=== PATIENT | female | born 1950 | race Caucasian/White ===

== ENCOUNTER → 2016-11-23 | Outpatient (CLI) | payer OTHER ==
[~2016-11-23] MED LIST: ALBUTEROL17 GM; ALLEGRA; ASMANEX; NASACORT AQ16.5 GM; SINGULAIR
--- NOTE | ~2016-11-23 | MR83 ---
[facility] A Service of [facility] RADIOLOGY TEXT RESULTS PATIENT: KRISTIN HECTOR LOCATION: [facility] : 52 UNIT #: [id number] AGE: [address]: Sang Jane MD SEX: F ORDER DR: [id number] [address] [address] [id number] O MR#: [id number] Acc #: [id number] NAME: KRISTIN HECTOR : 1950 SEX: F STUDY DATE/TIME: 11/23/2016 9:30 UNIT: [facility] ROOM: STUDY DESCRIPTION: MR Hip Wo Contrast Lt Attending Physician: Sang Jane M.D. Referring Physician: Sang Jane M.D. Ordering Physician: Sang Jane M.D. Primary Care Physician: Miller Lazcano M.D. MRI CENTER REPORT This report is preliminary unless electronic signature is present. EXAM MRI pelvis and hips, 11/23/2016 COMPARISON Pelvis, left hip radiographs 09/06/2016. CT pelvis 06/30/2007. HISTORY Left hip pain. History sheet states no specific injury and no prior surgery. Increasing left hip pain for about 6 months extending into the thigh. Hysterectomy. History of rheumatoid arthritis. The hips demonstrate no effusion, fracture, or avascular necrosis. There are no visible arthritic changes of the hips. There is no high-grade chondromalacia or loose body noted. The gluteal tendon insertions at the greater trochanter are unremarkable. There may be very minimal left hamstring origin tendinosis but no evidence of a tear or inflammatory change. The remainder of the bony pelvis, sacrum, and SI joints are unremarkable. Pelvic musculature is unremarkable. There is lumbar curvature and multilevel lumbar degenerative disc disease, not optimally evaluated on this exam. Sigmoid diverticulosis is present. Patient is status post hysterectomy. There is no mass or hernia identified. No lymphadenopathy. There is no muscle atrophy. IMPRESSION 1. The musculoskeletal pelvis and hips are normal except for very minimal tendinosis at the origin of the left hamstrings at the [facility] A Service of [facility] & [facility] RADIOLOGY TEXT RESULTS PATIENT: KRISTIN HECTOR LOCATION: [facility] : 52 UNIT #: [id number] AGE: [address]: Sang Jane MD SEX: F ORDER DR: ischial tuberosity. 2. Lower lumbar degenerative disc disease and curvature. 3. Sigmoid diverticulosis. 4. Hysterectomy. Dictated by... Anh Sharma M.D. THIS IS AN ELECTRONICALLY VERIFIED REPORT Anh Sharma M.D. at 11/26/2016 2:14 PM SANTA/deedee TD: 11/26/2016 11:34 JOB #: [id number] MRI CENTER REPORT Page 1 of 1
== END | disposition home or self-care (01) ==
LOC: SMRI 09:11
DX: M25.552 Pain in left hip (principal); M51.36 Other intervertebral disc degeneration, lumbar region; M43.8X6 Other specified deforming dorsopathies, lumbar region; K57.30 Diverticulosis of large intestine without perforation or abscess without bleeding; Z90.710 Acquired absence of both cervix and uterus
CPT/HCPCS: 73721

== ENCOUNTER → 2016-12-25 | Outpatient (CLI) | payer MEDICARE ==
--- NOTE | ~2016-12-25 | BD1 ---
[facility] A Service of [facility] RADIOLOGY TEXT RESULTS PATIENT: KRISTIN HECTOR LOCATION: [facility] : 51 UNIT #: [id number] AGE: [address]: Fabiola Munoz MD SEX: F ORDER DR: [id number] [facility] [address] [place], [place] [address] [id number] O MR#: [id number] Acc #: [id number] NAME: KRISTIN HECTOR : 1950 SEX: F STUDY DATE/TIME: 12/25/2016 9:36 UNIT: [facility] ROOM: STUDY DESCRIPTION: BD Dexa Bone Dens 1+ Site Attending Physician: Fabiola Munoz M.D. Referring Physician: Fabiola Munoz M.D. Ordering Physician: Fabiola Munoz M.D. Primary Care Physician: Miller Lazcano M.D. MEDICAL IMAGING REPORT This report is preliminary unless electronic signature is present EXAM DEXA bone scan spine and hip HISTORY Osteoporosis. Postmenopausal. Nonsmoker. Blood pressure medicine. TECHNIQUE Bone density scanning performed upper 4 lumbar vertebral segments and proximal left femur in 200 pound, 66-year-old female. COMPARISON STUDIES 12/21/2014. FINDINGS L1-L4: Total bone mineral density 1.066 g/cm2 for T score 0 standard deviation of the mean for a reference population of normal young individuals and Z score 2.0 standard deviations above the mean for an age-matched population. Compared to 12/21/14, there has been a statistically-significant 11.5% increase in bone mineral density in this region. Proximal left femur: Total bone mineral density 0.956 g/cm2 for a T score of 0.1 standard deviation above the mean for a reference population of normal young individuals, and Z score of 1.4 standard deviations above the mean for age-matched population. In the left femoral neck specifically, the bone mineral density is 0.617 g/cm2 for a T score 2.1 standard deviations below mean for a reference population of normal young individuals, and Z score 0.5 standard deviations below mean for age-matched population. Using total bone mineral density as trending value in this region, there [facility]. [facility] A Service of [facility] & [facility] RADIOLOGY TEXT RESULTS PATIENT: KRISTIN HECTOR LOCATION: [facility] : 52 UNIT #: [id number] AGE: [address]: Fabiola Munoz MD SEX: F ORDER DR: has been an 8.6% increase in bone mineral density compared to 12/21/14. IMPRESSION 1. Osteopenia in the left femoral neck. The patient felt to be at increased risk for fracture. Treatment options may be considered. Continued surveillance is recommended. 2. Please see trending data in body of report above. Dictated by... Slick Lipscomb M.D. THIS IS AN ELECTRONICALLY VERIFIED REPORT Slick Lipscomb M.D. at 12/27/2016 8:25 AM Angelito TD: 12/26/2016 14:42 JOB #: [id number] MEDICAL IMAGING REPORT Page 1 of 1 COPY
--- NOTE | ~2016-12-25 | MY11 ---
[facility] A Service of [facility] RADIOLOGY TEXT RESULTS PATIENT: KRISTIN HECTOR LOCATION: [facility] : 52 UNIT #: [id number] AGE: [address]: Fabiola Munoz MD SEX: F ORDER DR: [id number] [facility] [address] [place], [place] [address] [id number] O MR#: [id number] Acc #: [id number] NAME: KRISTIN HECTOR : 1950 SEX: F STUDY DATE/TIME: 12/25/2016 9:55 UNIT: [facility] ROOM: STUDY DESCRIPTION: MY Mammogram Screening Dig Abiodun Attending Physician: Fabiola Munoz M.D. Referring Physician: Fabiola Munoz M.D. Ordering Physician: Fabiola Munoz M.D. Primary Care Physician: Miller Lazcano M.D. MEDICAL IMAGING REPORT This report is preliminary unless electronic signature is present EXAM Digital screening mammogram 12/25/2016 HISTORY 66-year-old woman no risk elevation. Annual screen. COMPARISON Mammograms date to 10/28/2006 with most recent comparison 11/29/2015. FINDINGS Digital imaging of each breast was completed utilizing a two-view examination of each breast in craniocaudal and mediolateral-oblique projections. Review and interpretation of digital mammograms include a second review in conjunction with FDA-approved CAD device. There is a normal parenchymal presentation bilaterally consistent with the patient's age. There are no breast masses imaged and no parenchymal asymmetry is visualized. There are no suspicious microcalcifications and I see no focal architectural disturbance. IMPRESSION Negative screening digital mammogram. One-year followup recommended. ADDENDUM Breast parenchyma is fatty replaced. Patients over the age of 40 are entered into a reminder system with target due date for the next mammogram. A result letter will also be sent to the patient. BIRADS: 1 Negative [facility] A Service of [facility] & [facility] RADIOLOGY TEXT RESULTS PATIENT: KRISTIN HECTOR LOCATION: [facility] : 52 UNIT #: [id number] AGE: [address]: Fabiola Munoz MD SEX: F ORDER DR: Dictated by... Neo Saldivar M.D. THIS IS AN ELECTRONICALLY VERIFIED REPORT Noe Saldivar M.D. at 12/25/2016 2:42 PM MAGDY/lisa TD: 12/25/2016 14:19 JOB #: [id number] MEDICAL IMAGING REPORT Page 1 of 1 COPY
== END | disposition home or self-care (01) ==
LOC: CWCC 09:11
DX: Z13.820 Encounter for screening for osteoporosis (principal); Z12.31 Encounter for screening mammogram for malignant neoplasm of breast; M85.88 Other specified disorders of bone density and structure, other site; R92.8 Other abnormal and inconclusive findings on diagnostic imaging of breast
CPT/HCPCS: 77080; G0202

== ENCOUNTER → 2017-04-11 | Outpatient (CLI) | payer MEDICARE ==
--- NOTE | ~2017-04-11 | MR113 ---
[facility] A Service of [facility] & [facility] RADIOLOGY TEXT RESULTS PATIENT: KRISTIN HECTOR LOCATION: [facility] : 51 UNIT #: [id number] AGE: [address]: Sang Jane MD SEX: F ORDER DR: [id number] [address] [address] [id number] O MR#: [id number] Acc #: [id number] NAME: KRISTIN HECTOR : 1950 SEX: F STUDY DATE/TIME: 04/11/2017 16:07 UNIT: [facility] ROOM: STUDY DESCRIPTION: MR Lumbar Wo Contrast Attending Physician: Sang Jane M.D. Referring Physician: Sang Jane M.D. Ordering Physician: Sang Jane M.D. Primary Care Physician: Miller Lazcano M.D. MRI CENTER REPORT This report is preliminary unless electronic signature is present. EXAM Lumbar MRI HISTORY Low back pain radiating to the left. Symptoms over the past 4 months. TECHNIQUE Multiplanar imaging of the lumbar spine was performed with short and long TR. FINDINGS Coronal series demonstrates mid lumbar levoscoliosis with a An angle of 18.4 degrees. Degenerative changes are seen at all lumbar discs. At L1-L2, there is disc space narrowing with mild broad-based posterior disc bulging and osteophyte. There is mild bilateral facet hypertrophy with mild central stenosis. At L2-3, there is disc space narrowing with a degenerative grade 1 retrolisthesis. There is moderate bilateral facet hypertrophy. Central stenosis at this level is moderate. Foraminal stenosis is mild bilaterally. At L3-4, the disc is degenerated with broad-based mild disc bulging. Facet hypertrophy is moderate on the left and severe on the right and central stenosis is moderate. The foramina are mildly narrowed bilaterally, worse on the right side. At L4-5, the disc is narrowed with concentric disc bulging. This is more prominent to the left than to the right within the foramina. There is moderate bilateral facet hypertrophy. Central stenosis is mild. Foraminal stenosis is mild bilaterally and greater on the left than on the right. [facility] A Service of [facility] & [facility] RADIOLOGY TEXT RESULTS PATIENT: KRISTIN HECTOR LOCATION: [facility] : 51 UNIT #: [id number] AGE: [address]: Sang Jane MD SEX: F ORDER DR: At L5-S1, the disc is degenerated with disc space narrowing. There is lateral osteophyte formation on the left within the foramen. Bilateral facet hypertrophy is seen, moderate on the right and severe on the left. Foraminal narrowing is mild on the right and moderately severe on the left. There is still a small amount of fat around the exiting nerve root on the left side. The conus is normal. There is no evidence of marrow edema. No paraspinous masses are seen. IMPRESSION Scoliosis with degenerative disc and facet disease at all lumbar levels, as described above level by level. The most significant foraminal narrowing on the left side to account for the patient's symptoms is at the L5-S1 disc space. Dictated by... Salvatore Frankel M.D. THIS IS AN ELECTRONICALLY VERIFIED REPORT Salvatore Frankel M.D. at 04/12/2017 4:13 PM Bryant TD: 04/12/2017 11:31 JOB #: [id number] MRI CENTER REPORT Page 1 of 1
== END | disposition home or self-care (01) ==
LOC: SMRI 15:57
DX: M48.06 Spinal stenosis, lumbar region (principal); M41.9 Scoliosis, unspecified; M51.36 Other intervertebral disc degeneration, lumbar region; M99.83 Other biomechanical lesions of lumbar region
CPT/HCPCS: 72148